=== PATIENT | male | born 1935 | race Hispanic/Latino ===

== ENCOUNTER 2017-12-05 17:31 | Emergency (ER) | payer MEDICARE, OTHER, SELFPAY ==
--- NOTE | 2017-12-05 18:21 | CT ---
CT BRAIN: 12/05/2017 PROVIDED CLINICAL HISTORY: Fall with injury. Headache. COMPARISON: 05/15/2016 FINDINGS: The ventricular system is normal in size and morphology. There is no evidence for intracranial hemor rhage or mass effect. Chronic microvascular ischemic changes are again seen. The extracranial soft tissues and osseous structures demonstrate no acute findings. IMPRESSION: No evidence for intracranial hemorrhage or mass effect. POS: [facility]
--- NOTE | 2017-12-05 18:22 | CT ---
CT CERVICAL SPINE: 12/05/2017 PROVIDED CLINICAL HISTORY: Pain status post injury. COMPARISON: 05/13/2016 FINDINGS: No evidence for fracture or traumatic subluxation. Cervical degenerative changes are seen. No preve rtebral soft tissue swelling is evident. The visualized lung apices appear clear. IMPRESSION: No evidence for fracture or traumatic subluxation. POS: [facility]
--- NOTE | 2017-12-05 18:26 | RAD ---
RIGHT SHOULDER RADIOGRAPHS THREE VIEWS: 12/05/2017 PROVIDED CLINICAL HISTORY: Pain status post injury. FINDINGS: There is no evidence for fracture or other acute osseous abnormality. If there is persistent clinica l concern, conservative management and follow-up imaging are advised. IMPRESSION: As above. POS: [facility]
== END 2017-12-05 18:27 | disposition home or self-care (01) ==
LOC: ERS 17:31
DX: S46.911A Strain of unspecified muscle, fascia and tendon at shoulder and upper arm level, right arm, initial encounter (principal); R51 Headache; I25.10 Atherosclerotic heart disease of native coronary artery without angina pectoris; E11.9 Type 2 diabetes mellitus without complications; I10 Essential (primary) hypertension; Z87.891 Personal history of nicotine dependence; W01.198A Fall on same level from slipping, tripping and stumbling with subsequent striking against other object, initial encounter
CPT/HCPCS: 70450; 72125

== ENCOUNTER 2018-08-12 15:10 | Outpatient (CLI) | payer MEDICARE, OTHER ==
--- NOTE | 2018-08-12 17:55 | ULT ---
BILATERAL CAROTID DUPLEX ULTRASOUND: DATE: 08/12/18 HISTORY: Carotid stenosis. TECHNIQUE: Huston scale ultrasound with color flow and spectral Doppler imaging of the extracranial carotid artery systems performed bilaterally. FINDINGS: There is plaque formation on either side. The peak systolic velocity in the right ICA measures 88 cm/second with an end-diastolic velocity of 1 4 cm/second and a systolic ratio of 0.87. The peak systolic velocity in the left ICA measures 125 cm/second with an end-diastolic velocity of 1 7 cm/second and a systolic ratio of 1.09. Flow in both vertebral arteries remains antegrade. IMPRESSION: Moderate (50-69%) stenosis involving the left ICA. POS: [facility]
== END 2018-08-12 15:11 | disposition home or self-care (01) ==
LOC: BICULT 15:10
PROVIDERS: ATTEND Psychiatry & Neurology Neurology
DX: I66.21 Occlusion and stenosis of right posterior cerebral artery (principal); I65.22 Occlusion and stenosis of left carotid artery
CPT/HCPCS: 93880

== ENCOUNTER 2022-08-23 17:28 | Observation (INO) | payer MEDICARE, OTHER ==
[~2022-08-23 17:28] MED LIST: Iopamidol-370 76% 500 ML 1 ML ONE
[2022-08-23 18:31] LABS: Bilirubin Negative (Negative); Blood, Urine Negative (Negative); Clarity Clear (Clear); Glucose, Urine (Dipstick) Normal (Negative); Ketone, Urine Negative (Negative); Leukocyte Negative Leu/uL (Negative); Nitrite Negative (Negative); Protein, Urine (Dipstick) Negative (Neg-Trace); Specific Gravity, Urine 1.006 (1.002-1.036); Urobilinogen Normal mg/dL (Less than 2)
[2022-08-23 18:43] LABS: #Eosinphils 0.3 thou/uL (0.0-0.7); #Lymphocytes 1.5 thou/uL (1.20-3.40); #Monocytes 0.6 thou/uL (0.11-0.59); #Neutrophils 3.7 thou/uL (1.40-6.50); %Basophils 0.6 % (0.0-1.0); %Eosinophils 4.6 % (0.0-10.0); %Lymphocytes 24.8 % (21.0-51.0); %Monocytes 9.5 % (0.0-10.0); %Neutrophils 60.5 % (42.0-75.0); Mean Corpuscular HGB CONC 32.9 g/dL (32.0-36.0); Mean Corpuscular Volume 82.1 fl (78.0-98.0); Mean Platelet Volume 8.3 fL (7.4-10.4); Platelet Count 142 10x3/uL (130-400); RBC Distribution Width 14.2 % (11.5-14.5); Red Blood Cell (RBC) Count 3.71 mill/uL (4.70-6.10); White Blood Cell (WBC) Count 6.1 10x3/uL (4.8-10.8)
[2022-08-23] MEDS ORDERED: Nitroglycerin 2% Ointment 1 INCH/1 GM Packet ONE (19:01)
[2022-08-23 19:05] LABS: ALT (SGPT) 10 U/L (8-55); AST (SGOT) 12 U/L (5-34); Albumin 4.2 g/dL (3.4-4.8); Alkaline Phosphatase 93 U/L (40-110); Anion Gap 13 mmol/L (10-20); BUN (Urea Nitrogen) 16 mg/dL (8.4-25.7); Bilirubin, Total 0.8 mg/dL (0.2-1.2); Calc. Creatinine Clearance 0 mL/min (70-130); Calcium 9.1 mg/dL (7.8-10.44); Carbon Dioxide 21 mmol/L (23-31); Chloride 107 mmol/L (98-107); Estimated GFR 76; Globulin 2.9 g/dL (2.4-3.5); Glucose 150 mg/dL (83-110); Lipase 35 U/L (8-78); Magnesium 1.8 mg/dL (1.6-2.6); Potassium 4.1 mmol/L (3.5-5.1); Protein, Total 7.1 g/dL (5.8-8.1); Sodium 137 mmol/L (136-145)
[2022-08-23] MEDS ORDERED: Morphine 4 MG/ML VIAL ONE (19:10)
[2022-08-23] MEDS ORDERED: Ondansetron ODT 4 MG TAB SL PRN (21:30)
[2022-08-23] MEDS ORDERED: Acetaminophen 325 MG TAB PO PRN ×2 (21:30→22:57)
[2022-08-23] MEDS ORDERED: Ondansetron PF 4 MG/2 ML Vial IVP PRN (21:30)
[2022-08-23 22:13] LABS: Troponin I Less than 0.010 ng/mL (< 0.028)
[2022-08-23] MEDS ORDERED: Dextrose 50% Abboject 50 ML SYRINGE SLOW IVP PRN (22:37)
[2022-08-23] MEDS ORDERED: Nitroglycerin 0.4 MG TAB (25 Tab Bottle) SL PRN (22:37)
[2022-08-23] MEDS ORDERED: HumaLOG 300 UNITS/3 ML VIAL SC PRN ×2 (22:37)
[2022-08-23] MEDS ORDERED: Dextrose 5% in Water 1,000 ML IV PRN (22:37)
[2022-08-23] MEDS ORDERED: Morphine 2 MG/ML VIAL SLOW IVP PRN (22:56)
[2022-08-23 23:06] VITALS: BMI 27.6
[2022-08-23 23:32] LABS: Hemoglobin A1c 7.6 % (4.0-6.0)
[2022-08-23 23:35] LABS: Magnesium 1.8 mg/dL (1.6-2.6)
[2022-08-24 02:29] LABS: #Eosinphils 0.3 thou/uL (0.0-0.7); #Lymphocytes 1.8 thou/uL (1.20-3.40); #Monocytes 0.7 thou/uL (0.11-0.59); #Neutrophils 2.8 thou/uL (1.40-6.50); %Basophils 0.6 % (0.0-1.0); %Eosinophils 5.1 % (0.0-10.0); %Lymphocytes 31.5 % (21.0-51.0); %Monocytes 12.9 % (0.0-10.0); %Neutrophils 49.9 % (42.0-75.0); Hemoglobin 9.7 g/dL (14.0-18.0); Mean Corpuscular HGB CONC 32.4 g/dL (32.0-36.0); Mean Corpuscular Volume 83.3 fl (78.0-98.0); Mean Platelet Volume 8.4 fL (7.4-10.4); Platelet Count 141 10x3/uL (130-400); RBC Distribution Width 14.3 % (11.5-14.5); White Blood Cell (WBC) Count 5.6 10x3/uL (4.8-10.8)
[2022-08-24 02:52] LABS: Troponin I Less than 0.010 ng/mL (< 0.028)
[2022-08-24 02:53] LABS: Anion Gap 14 mmol/L (10-20); BUN (Urea Nitrogen) 14 mg/dL (8.4-25.7); Calc. Creatinine Clearance 73 mL/min (70-130); Calcium 9.4 mg/dL (7.8-10.44); Carbon Dioxide 22 mmol/L (23-31); Cardiac Risk 2.4 (Less than 4.5); Chloride 107 mmol/L (98-107); Cholesterol 107 mg/dl (< 200 Desired); Estimated GFR 85; Glucose 124 mg/dL (83-110); HDL Cholesterol 44 mg/dL (>60 Neg Risk); LDL Cholesterol, Calculated 53 mg/dL; Potassium 3.6 mmol/L (3.5-5.1); Sodium 139 mmol/L (136-145); Triglycerides 48 mg/dL (Less than 150)
[2022-08-24 05:32] LABS: Iron 54 ug/dL (65-175); Iron Binding Capacity, Total 386 mcg/dL (261-462); Transferrin, Serum 309 mg/dL (163-344)
[2022-08-24] MEDS ORDERED: Losartan/Hydrochlorothiazide 100 mg/25 mg Tablet PO SCH (09:00)
[2022-08-24] MEDS ORDERED: Atorvastatin Calcium 20 MG TAB PO SCH (09:00)
[2022-08-24] MEDS ORDERED: Amlodipine 10 MG TAB PO SCH (09:00)
[2022-08-24] MEDS: Carvedilol 6.25 MG TAB PO SCH ×2 (10:53→17:57)
[2022-08-24] MEDS: Aspirin Chewable 81 MG TAB PO SCH ×2 (10:53→10:55)
[2022-08-24 12:06] VITALS: TEMP 97.5
[2022-08-24] MEDS ORDERED: Regadenoson 0.4 MG/5 ML SYRINGE ONE (13:28)
[2022-08-24 16:41] VITALS: BP 123/65
[2022-08-24] MEDS ORDERED: Ferrous Sulfate 325 MG TAB PO SCH (17:00)
[2022-08-24] MEDS ORDERED: Apixaban 5 MG TAB PO SCH (21:00)
[2022-08-24] MEDS ORDERED: Aspirin 81 mg Enteric Coated Tablet PO SCH (21:00)
== END 2022-08-24 18:14 | disposition home or self-care (01) ==
LOC: ERS 17:28 → 2SW 20:33
PROVIDERS: ADMIT Internal Medicine; ATTEND Internal Medicine
DX: R07.89 Other chest pain (principal); E11.9 Type 2 diabetes mellitus without complications; I48.20 Chronic atrial fibrillation, unspecified; I10 Essential (primary) hypertension; D64.9 Anemia, unspecified; G89.29 Other chronic pain; M79.645 Pain in left finger(s); I25.10 Atherosclerotic heart disease of native coronary artery without angina pectoris; I08.3 Combined rheumatic disorders of mitral, aortic and tricuspid valves; Z66 Do not resuscitate; Z87.891 Personal history of nicotine dependence; Z79.01 Long term (current) use of anticoagulants; Z79.82 Long term (current) use of aspirin; Z79.84 Long term (current) use of oral hypoglycemic drugs; Z79.899 Other long term (current) drug therapy; Z95.1 Presence of aortocoronary bypass graft; Z20.822 Contact with and (suspected) exposure to COVID-19
CPT/HCPCS: 71045; 73130; 74177; 78452; 80048; 80061; 81003; 82728; 82962; 83036; 83540; 83690; 83735; 84484 ×3; 85025; 93005; 93017; 93306; 96374; 99285; A9500; U0003; U0005; 36415; 36416; 80053; 83550; 84443; 84466; 96376; G0378; J2270; J2272; J2785; Q9967

== ENCOUNTER 2023-08-05 17:12 | Emergency (ER) | payer MEDICARE, OTHER ==
[2023-08-05 17:57] LABS: #Eosinphils 0.1 thou/uL (0.0-0.7); #Monocytes 1.4 thou/uL (0.11-0.59); #Neutrophils 6.7 thou/uL (1.40-6.50); %Basophils 0.2 % (0.0-1.0); %Eosinophils 1.4 % (0.0-10.0); %Lymphocytes 12.4 % (21.0-51.0); %Neutrophils 70.4 % (42.0-75.0); Hematocrit 36.9 % (42.0-52.0); Hemoglobin 12.4 g/dL (14.0-18.0); Mean Corpuscular HGB CONC 33.6 g/dL (32.0-36.0); Mean Corpuscular Hemoglobin 28.1 pg (27.0-31.0); Mean Corpuscular Volume 83.5 fl (78.0-98.0); Mean Platelet Volume 9.9 fL (7.4-10.4); Platelet Count 182 10x3/uL (130-400); RBC Distribution Width 13.3 % (11.5-14.5); Red Blood Cell (RBC) Count 4.42 mill/uL (4.70-6.10); White Blood Cell (WBC) Count 9.5 10x3/uL (4.8-10.8)
[2023-08-05 18:23] LABS: ALT (SGPT) 9 U/L (8-55); AST (SGOT) 8 U/L (5-34); Albumin 4.7 g/dL (3.4-4.8); Alkaline Phosphatase 134 U/L (40-110); Anion Gap 14 mmol/L (10-20); BUN (Urea Nitrogen) 19 mg/dL (8.4-25.7); Bilirubin, Total 1.5 mg/dL (0.2-1.2); Calc. Creatinine Clearance 0 mL/min (70-130); Calcium 9.5 mg/dL (7.8-10.44); Carbon Dioxide 25 mmol/L (23-31); Chloride 101 mmol/L (98-107); Estimated GFR 65; Globulin 3.3 g/dL (2.4-3.5); Glucose 266 mg/dL (83-110); Potassium 3.8 mmol/L (3.5-5.1); Sodium 136 mmol/L (136-145)
[2023-08-05 18:27] LABS: Troponin I Less than 0.010 ng/mL (< 0.028)
[2023-08-05 18:39] LABS: SARS-CoV-2 NAA Rapid Test Not Detected (NotDetected)
[2023-08-05] MEDS ORDERED: Ketorolac Tromethamine 30 MG (1 mL) VIAL ONE (18:41)
[2023-08-05] MEDS ORDERED: Amoxicillin/Potassium Clav 875 MG TAB ONE (18:41)
== END 2023-08-05 18:55 | disposition home or self-care (01) ==
LOC: ERS 17:12
DX: J01.90 Acute sinusitis, unspecified (principal); B96.89 Other specified bacterial agents as the cause of diseases classified elsewhere; M54.2 Cervicalgia; F17.210 Nicotine dependence, cigarettes, uncomplicated; E11.9 Type 2 diabetes mellitus without complications; I10 Essential (primary) hypertension
CPT/HCPCS: 0240U; 70450; 71045; 72125; 80053; 83605; 83880; 84484; 85025; 87040; 93005; 94760; 96374; 99284; J1885

== ENCOUNTER 2024-04-03 17:08 | Inpatient (IN) | payer MEDICARE, OTHER ==
[2024-04-03 17:49] LABS: #Basophils Less than 0.03 10x3/uL (0.0-0.2); %Basophils 0.2 % (0.0-1.0); %Eosinophils 0.6 % (0.0-10.0); %Lymphocytes 7.2 % (21.0-51.0); %Monocytes 7.2 % (0.0-10.0); Hematocrit 17.8 % (42.0-52.0); Mean Corpuscular HGB CONC 28.1 g/dL (32.0-36.0); Mean Corpuscular Hemoglobin 23.4 pg (27.0-31.0); Mean Corpuscular Volume 83.2 fL (78.0-98.0); Mean Platelet Volume 9.8 fL (7.4-10.4); Platelet Count 127 10x3/uL (130-400); Red Blood Cell (RBC) Count 2.14 mill/uL (4.70-6.10)
[2024-04-03 17:57] LABS: INR-International Normal Ratio 1.6; Prothrombin Time 18.9 sec (12.0-14.7)
[2024-04-03 17:58] LABS: ALT (SGPT) 11 U/L (8-55); AST (SGOT) 12 U/L (5-34); Albumin 3.7 g/dL (3.4-4.8); Alkaline Phosphatase 76 U/L (40-110); Anion Gap 15 mmol/L (10-20); BUN (Urea Nitrogen) 27 mg/dL (8.4-25.7); Calc. Creatinine Clearance 0 mL/min (70-130); Carbon Dioxide 20 mmol/L (23-31); Chloride 108 mmol/L (98-107); Estimated GFR 48; Globulin 2.9 g/dL (2.4-3.5); Glucose 161 mg/dL (83-110); PTT 34.9 sec (22.9-36.1); Potassium 3.7 mmol/L (3.5-5.1); Protein, Total 6.6 g/dL (5.8-8.1); Sodium 139 mmol/L (136-145)
[2024-04-03 18:10] LABS: Anisocytosis MODERATE=16-30 cells HPF (0-5); Hypochromia SLIGHT = 6-15 cells HPF (0-5); Microcytosis SLIGHT = 6-15 cells HPF (0-5); Platelet Adequacy Comment Platelets Decreased; Polychromasia MODERATE = 3-4 cells HPF (0-2); Reflex for Review?? YES; Schistocytes SLIGHT = 2-5 cells HPF (0-1)
[2024-04-03 19:14] LABS: Hematocrit 17.4 % (42.0-52.0); Hemoglobin 4.9 g/dL (14.0-18.0)
[2024-04-03 19:17] LABS: Troponin I Less than 0.010 ng/mL (< 0.028)
[2024-04-03] MEDS ORDERED: Pantoprazole 40 MG VIAL ONE (20:43)
[2024-04-03 23:43] VITALS: BMI 28.3
[2024-04-04] MEDS ORDERED: Glucagon 1 MG/ML KIT IM PRN (01:01)
[2024-04-04] MEDS ORDERED: Dextrose 50% Abboject 50 ML SYRINGE SLOW IVP PRN (01:01)
[2024-04-04] MEDS ORDERED: Dextrose 5% in Water 1,000 ML IV PRN (01:01)
[2024-04-04] MEDS ORDERED: Insulin Lispro 100 UNIT/ML 10 ML VIAL SC PRN ×2 (01:01)
[2024-04-04] MEDS ORDERED: Acetaminophen 650 MG Suppository PR PRN (01:04)
[2024-04-04] MEDS ORDERED: Ondansetron PF 4 MG/2 ML Vial IVP PRN (01:04)
[2024-04-04] MEDS ORDERED: Ondansetron ODT 4 MG TAB PO PRN (01:04)
[2024-04-04] MEDS: Acetaminophen 325 MG TAB PO SCH (02:33)
[2024-04-04 06:22] LABS: #Basophils Less than 0.03 10x3/uL (0.0-0.2); %Basophils 0.2 % (0.0-1.0); %Eosinophils 1.5 % (0.0-10.0); %Lymphocytes 12.3 % (21.0-51.0); %Monocytes 14.3 % (0.0-10.0); %Neutrophils 71.2 % (42.0-75.0); Hematocrit 23.1 % (42.0-52.0); Hemoglobin 7.3 g/dL (14.0-18.0); Mean Corpuscular HGB CONC 31.6 g/dL (32.0-36.0); Mean Corpuscular Volume 82.2 fL (78.0-98.0); Mean Platelet Volume 10.2 fL (7.4-10.4); Platelet Count 118 10x3/uL (130-400); RBC Distribution Width 25.3 % (11.5-14.5); Red Blood Cell (RBC) Count 2.81 mill/uL (4.70-6.10)
[2024-04-04 06:44] LABS: Anisocytosis SLIGHT = 6-15 cells HPF (0-5); Hypochromia SLIGHT = 6-15 cells HPF (0-5); Platelet Adequacy Comment Platelets Decreased; Polychromasia SLIGHT = 2-3 cells HPF (0-2)
[2024-04-04 06:48] LABS: Anion Gap 13 mmol/L (10-20); BUN (Urea Nitrogen) 21 mg/dL (8.4-25.7); Calc. Creatinine Clearance 61 mL/min (70-130); Calcium 8.8 mg/dL (7.8-10.44); Carbon Dioxide 23 mmol/L (23-31); Chloride 107 mmol/L (98-107); Estimated GFR 73; Glucose 122 mg/dL (83-110); Potassium 3.4 mmol/L (3.5-5.1); Sodium 140 mmol/L (136-145)
[2024-04-04 07:00] LABS: Hemoglobin A1c 5.4 % (4.0-6.0)
[2024-04-04] MEDS: metFORMIN 500 MG TAB PO SCH (08:47)
[2024-04-04] MEDS: Alogliptin 6.25 MG TAB PO SCH (08:48)
[2024-04-04] MEDS: Losartan 25 MG TAB PO SCH (08:48)
[2024-04-04] MEDS: Carvedilol 6.25 MG TAB PO SCH (08:48)
[2024-04-04] MEDS: Amlodipine 10 MG TAB PO SCH (08:48)
[2024-04-04] MEDS: Famotidine/PF 20 mg/2ml Vial SLOW IVP SCH (08:49)
[2024-04-04] MEDS: Empagliflozin 10 MG TAB PO SCH (08:49)
[2024-04-04] MEDS: Pantoprazole 40 MG VIAL IVP SCH (08:49)
[2024-04-04] MEDS: Hydrochlorothiazide 25 MG TAB PO SCH (08:49)
[2024-04-04] MEDS: Famotidine 20 MG TAB PO SCH (08:49)
[2024-04-04] MEDS: Ferrous Gluconate 324 MG TAB PO SCH ×3 (10:13→10:50)
[2024-04-04] MEDS: Acetaminophen 325 MG TAB PO PRN (17:36)
[2024-04-04] MEDS: Atorvastatin Calcium 40 MG TAB PO SCH (21:14)
[2024-04-05 06:27] LABS: ALT (SGPT) 12 U/L (8-55); AST (SGOT) 15 U/L (5-34); Albumin 3.4 g/dL (3.4-4.8); Alkaline Phosphatase 80 U/L (40-110); Anion Gap 14 mmol/L (10-20); BUN (Urea Nitrogen) 15 mg/dL (8.4-25.7); Bilirubin, Total 1.9 mg/dL (0.2-1.2); Calc. Creatinine Clearance 62 mL/min (70-130); Calcium 9.1 mg/dL (7.8-10.44); Carbon Dioxide 22 mmol/L (23-31); Chloride 105 mmol/L (98-107); Estimated GFR 75; Glucose 85 mg/dL (83-110); Magnesium 1.6 mg/dL (1.6-2.6); Potassium 3.3 mmol/L (3.5-5.1); Protein, Total 6.4 g/dL (5.8-8.1); Sodium 138 mmol/L (136-145)
[2024-04-05 06:48] LABS: #Basophils Less than 0.03 10x3/uL (0.0-0.2); %Basophils 0.4 % (0.0-1.0); %Eosinophils 1.8 % (0.0-10.0); %Lymphocytes 14.8 % (21.0-51.0); %Monocytes 19.9 % (0.0-10.0); %Neutrophils 62.4 % (42.0-75.0); Hematocrit 25.6 % (42.0-52.0); Hemoglobin 7.9 g/dL (14.0-18.0); Mean Corpuscular HGB CONC 30.9 g/dL (32.0-36.0); Mean Corpuscular Hemoglobin 26.1 pg (27.0-31.0); Mean Corpuscular Volume 84.5 fL (78.0-98.0); Mean Platelet Volume 9.9 fL (7.4-10.4); Platelet Count 133 10x3/uL (130-400); Red Blood Cell (RBC) Count 3.03 mill/uL (4.70-6.10)
[2024-04-05 08:17] LABS: Anisocytosis MARKED = >30 cells HPF (0-5); Band 8 % (5-11); Burr Cells SLIGHT = 2-5 cells HPF (0-1); Eosinophils 2 % (0-10); Hypochromia SLIGHT = 6-15 cells HPF (0-5); Lymphocytes 10 % (21-51); Macrocytosis MODERATE=16-30 cells HPF (0-5); Monocytes 9 % (0-10); Neutrophil 71 % (42-75); Ovalocytes SLIGHT = 2-5 cells HPF (0-1); Plasma Cells 1 % (0-0); Platelet Adequacy Comment Platelets Normal; Polychromasia MARKED = >4 cells HPF (0-2); Smudge Cells 7.8 %
[2024-04-05] MEDS ORDERED: PROPOFOL 0 ML ONE (09:35)
[2024-04-05] MEDS ORDERED: Lidocaine 2% PF 5 ML VIAL ONE (09:35)
[2024-04-05] MEDS ORDERED: Etomidate 40 MG (20 mL) VIAL ONE (09:35)
[2024-04-05] MEDS ORDERED: Ondansetron HCl/PF 4 MG/2 ML Vial IVP PRN (09:41)
[2024-04-05] MEDS ORDERED: PROPOFOL 20 ML ONE (10:13)
[2024-04-05] MEDS: Pantoprazole 40 MG VIAL IVP SCH ×2 (11:16→21:20)
[2024-04-05] MEDS ORDERED: Benzonatate 100 MG CAP PO PRN (20:03)
[2024-04-05] MEDS: Benzonatate 100 MG CAP PO SCH (21:18)
[2024-04-06 05:18] LABS: #Basophils Less than 0.03 10x3/uL (0.0-0.2); %Basophils 0.4 % (0.0-1.0); %Eosinophils 2.2 % (0.0-10.0); %Lymphocytes 17.3 % (21.0-51.0); %Neutrophils 63.4 % (42.0-75.0); Hematocrit 29.3 % (42.0-52.0); Hemoglobin 8.8 g/dL (14.0-18.0); Mean Corpuscular Hemoglobin 25.8 pg (27.0-31.0); Mean Corpuscular Volume 85.9 fL (78.0-98.0); Mean Platelet Volume 9.7 fL (7.4-10.4); Platelet Count 131 10x3/uL (130-400); RBC Distribution Width 25.8 % (11.5-14.5); Red Blood Cell (RBC) Count 3.41 mill/uL (4.70-6.10)
[2024-04-06 05:53] LABS: Anisocytosis MODERATE=16-30 cells HPF (0-5); Burr Cells SLIGHT = 2-5 cells HPF (0-1); Hypochromia SLIGHT = 6-15 cells HPF (0-5); Platelet Adequacy Comment Platelets Normal; Poikilocytosis SLIGHT = 6-15 cells HPF (0-5); Polychromasia SLIGHT = 2-3 cells HPF (0-2)
[2024-04-06 07:35] VITALS: TEMP 98.8
[2024-04-06 10:53] VITALS: BP 136/70
== END 2024-04-06 10:35 | disposition home or self-care (01) | DRG 811 ==
LOC: ERS 17:08 → 2NO 21:19
PROVIDERS: ADMIT Student in an Organized Health Care Education/Training Program; ATTEND Internal Medicine
PROC: 30233N1 Transfusion of Nonautologous Red Blood Cells into Peripheral Vein, Percutaneous Approach (ICD-10-PCS; 2024-04-03)
PROC: 0DB78ZZ Excision of Stomach, Pylorus, Via Natural or Artificial Opening Endoscopic (ICD-10-PCS; principal; 2024-04-05)
PROC: 0W3P8ZZ Control Bleeding in Gastrointestinal Tract, Via Natural or Artificial Opening Endoscopic (ICD-10-PCS; 2024-04-05)
DX: D62 Acute posthemorrhagic anemia (principal); K29.01 Acute gastritis with bleeding; I50.32 Chronic diastolic (congestive) heart failure; N17.9 Acute kidney failure, unspecified; E11.9 Type 2 diabetes mellitus without complications; I11.0 Hypertensive heart disease with heart failure; I48.0 Paroxysmal atrial fibrillation; I25.10 Atherosclerotic heart disease of native coronary artery without angina pectoris; Z87.891 Personal history of nicotine dependence; Z86.73 Personal history of transient ischemic attack (TIA), and cerebral infarction without residual deficits; I25.2 Old myocardial infarction; Z95.1 Presence of aortocoronary bypass graft; Z79.899 Other long term (current) drug therapy; Z79.82 Long term (current) use of aspirin; Z79.84 Long term (current) use of oral hypoglycemic drugs; Z79.01 Long term (current) use of anticoagulants
CPT/HCPCS: 36415; 36430; 71045; 80048; 80053; 82274; 83036; 83605; 83735; 83880; 84484; 85025; 85060; 85610; 85730; 86850; 86900; 86901; 88305; 93005; 96374; J2001; J2470; J2704; P9016

== ENCOUNTER 2024-04-15 19:47 | Emergency (ER) | payer MEDICARE, OTHER ==
[~2024-04-15 19:47] MED LIST changes: -Iopamidol-370 76% 500 ML 1 ML ONE; +Iopamidol-370 76% 500 ML MDV (1 ML CHARGE) ONE
[2024-04-15 20:03] LABS: #Basophils 0.03 10x3/uL (0.0-0.2); %Basophils 0.6 % (0.0-1.0); %Eosinophils 2.8 % (0.0-10.0); %Lymphocytes 23.4 % (21.0-51.0); %Monocytes 10.9 % (0.0-10.0); %Neutrophils 61.2 % (42.0-75.0); Hematocrit 27.1 % (42.0-52.0); Hemoglobin 8.2 g/dL (14.0-18.0); Mean Corpuscular HGB CONC 30.3 g/dL (32.0-36.0); Mean Corpuscular Hemoglobin 25.9 pg (27.0-31.0); Mean Corpuscular Volume 85.8 fL (78.0-98.0); Mean Platelet Volume 9.8 fL (7.4-10.4); Platelet Count 185 10x3/uL (130-400); RBC Distribution Width 22.2 % (11.5-14.5); Red Blood Cell (RBC) Count 3.16 mill/uL (4.70-6.10)
[2024-04-15 20:16] LABS: ALT (SGPT) 13 U/L (8-55); AST (SGOT) 12 U/L (5-34); Albumin 3.4 g/dL (3.4-4.8); Alkaline Phosphatase 93 U/L (40-110); Anion Gap 13 mmol/L (10-20); BUN (Urea Nitrogen) 22 mg/dL (8.4-25.7); Bilirubin, Total 0.7 mg/dL (0.2-1.2); Calc. Creatinine Clearance 0 mL/min (70-130); Calcium 8.6 mg/dL (7.8-10.44); Carbon Dioxide 22 mmol/L (23-31); Chloride 108 mmol/L (98-107); Estimated GFR 55; Globulin 2.7 g/dL (2.4-3.5); Glucose 204 mg/dL (83-110); Potassium 3.8 mmol/L (3.5-5.1); Protein, Total 6.1 g/dL (5.8-8.1); Sodium 139 mmol/L (136-145)
[2024-04-15 20:17] LABS: INR-International Normal Ratio 1.3; PTT 36.4 sec (22.9-36.1); Prothrombin Time 16.6 sec (12.0-14.7)
== END 2024-04-15 23:48 | disposition home or self-care (01) ==
LOC: ERS 19:47
DX: G45.9 Transient cerebral ischemic attack, unspecified (principal); H53.2 Diplopia; I25.10 Atherosclerotic heart disease of native coronary artery without angina pectoris; E11.9 Type 2 diabetes mellitus without complications; I10 Essential (primary) hypertension; Z86.73 Personal history of transient ischemic attack (TIA), and cerebral infarction without residual deficits; Z87.891 Personal history of nicotine dependence
CPT/HCPCS: 36416; 70450; 70496; 70498; 80053; 85025; 85610; 85730; 93005; Q9967